=== PATIENT | male | born 1990 | race Two or more races ===

== ENCOUNTER 2020-05-27 07:52 | Outpatient (REF) | payer MEDICAID, SELFPAY ==
--- NOTE | ~2020-05-27 | XR_ITS ---
EXAMINATION: CR CHEST CLINICAL INFORMATION: Congenital malformation of heart. COMPARISON: None TECHNIQUE: 2 views of the chest were obtained. FINDINGS: The cardiomediastinal silhouette is within normal limits in size. [place] are seen along the posterior heart border. Lungs bilaterally are symmetrically expanded and clear. No focal consolidation, effusion or pneumothorax is seen. Bony structures are unremarkable. XR/XR chest 2V IMPRESSION: No acute cardiopulmonary process.
[2020-05-27 08:47] LABS: Hematocrit 48.6 % (42-52); Hemoglobin 16.8 g/dl (14.0-18.0); Mean Corpuscular HGB Conc 34.6 g/dl (31.0-36.0); Mean Corpuscular Hemoglobin 30.7 pg (27.0-33.0); Mean Corpuscular Volume 88.8 fL (80-98); Mean Platelet Volume 9.2 fL (9.4-12.4); Platelet Count 346 X10*3/uL (160-400); Red Blood Count 5.47 X10*6/uL (4.60-5.80); Red Cell Distribution Width 11.8 % (11.0-16.0); White Blood Count 5.9 X10*3/uL (4.8-10.8)
[2020-05-27 09:09] LABS: Glucose Urine UA NEG (NEG); Leukocyte Esterase Urine NEG (NEG); Nitrite Urine NEG (NEG); PH 5.5 (5.0-8.0); Specific Gravity - Urine >= 1.030 (1.005-1.025); Urine Blood 1+ (NEG); Urine Ketones NEG (NEG); Urine Protein NEG (NEG-TRACE)
[2020-05-27 09:11] LABS: Appearance Urine CLEAR; Color Urine YELLOW
[2020-05-27 09:13] LABS: Estimated Average Glucose 105 mg/dL; Hemoglobin A1c % 5.3 %
[2020-05-27 09:20] LABS: Cholesterol 232 mg/dL; HDL Cholesterol 48 mg/dL; LDL Cholesterol Calculated 131 mg/dl; Triglycerides 266 mg/dL
[2020-05-27 09:23] LABS: WBC Urine 0 /HPF (0-4)
[2020-05-27 09:41] LABS: TSH reflex Free T4 2.17 uIU/mL (0.32-4.0); Vitamin D 25-OH Total 19.8 ng/mL (>30)
[2020-05-29 03:50] LABS: ~Hepatitis C Antibody Nonreactive (Nonreactive)
[2020-05-29 03:51] LABS: HBS Num1 5.98 mIU/mL (0-7.99); HBc Num1 0.07 S/CO (0.00-0.79); Hepatitis B Core Antibody Nonreactive (Nonreactive); ~Hepatitis B Surface Antibody NONREACTIVE (Nonreactive)
[2020-05-29 05:00] LABS: Folate 15.8 ng/mL (> or = 4.0); Vitamin B12 381 pg/mL (200-900)
== END 2020-05-27 07:53 | disposition home or self-care (01) ==
LOC: HO.LAB 07:52
PROVIDERS: PCP Registered Nurse; Visit Provider Registered Nurse
DX: Z00.00 Encounter for general adult medical examination without abnormal findings (principal); Q24.9 Congenital malformation of heart, unspecified; H53.9 Unspecified visual disturbance; Z87.790 Personal history of (corrected) congenital malformations of face and neck
CPT/HCPCS: 36415; 71046; 80061; 81001; 81003; 82306; 82607; 82746; 83036; 84443; 85027; 86704; 86706; 86803

== ENCOUNTER 2020-12-11 14:10 | Emergency (ER) | payer MEDICAID, SELFPAY ==
--- NOTE | ~2020-12-11 | CT_ITS ---
EXAMINATION: CT ABDOMEN AND PELVIS WITH CONTRAST CLINICAL INFORMATION: Abdominal pain COMPARISON: None TECHNIQUE: Multidetector volumetric images were obtained from the superior aspect of the liver through the pubic symphysis following administration 85 mL of Omnipaque 350 intravenous contrast. Sagittal and coronal reformatted images were obtained on the technologist's workstation. Oral contrast: No This CT examination was performed using dose optimization techniques as appropriate, variously including the following: *Automated exposure control *Adjustment of mA and/or kV according to patient size (this includes techniques or standardized protocols for targeted exams where dose is matched to indication/reason for exam; i.e. extremities or head) *Use of iterative reconstruction technique DLP: 491 mGy-cm FINDINGS: LUNG BASES: There is some architectural distortion and curvilinear opacity at the right lung base. This could reflect sequelae of a prior pleural effusion. There is a 4 mm right middle lobe nodule in image 3/97 LIVER, GALLBLADDER, AND BILIARY TREE: The liver is normal in size, shape, and attenuation. No focal hepatic lesion or biliary ductal dilatation is present. The gallbladder is unremarkable with no evidence of radiopaque gallstones, gallbladder wall thickening, or obvious pericholecystic inflammatory changes. PANCREAS: Unremarkable. SPLEEN: Unremarkable. ADRENAL GLANDS: Unremarkable. KIDNEYS AND URETERS: The kidneys are normal in size, shape, and attenuation. No hydronephrosis, hydroureter, or calculi seen. No perinephric stranding. BLADDER: Unremarkable. GASTROINTESTINAL TRACT: The stomach and small bowel are nondilated. There is fat density wall thickening of the terminal ileum for example image 41/87. ABDOMINAL WALL: Small fat-containing umbilical hernia. LYMPH NODES: Normal. VASCULAR: Unremarkable. PELVIC VISCERA: The prostate and seminal vesicles are unremarkable. OSSEOUS STRUCTURES: Unremarkable. CT/CT abdomen pelvis w con IMPRESSION: No acute CT findings. There is fat density wall thickening of the terminal ileum which can be seen as a sequelae of prior chronic inflammation. 4 mm right middle lobe nodule. In the absence of a history of known malignancy, given the patient's age, this is exceedingly likely to be benign and no imaging follow-up is recommended.
[2020-12-11 14:20] VITALS: BP 119/72; PULSE 118; RESP 18; TEMP 36.8; O2SAT 98; BMI 28.5
--- NOTE | 2020-12-11 14:21 | ED_ITS ---
HPI - Nausea/Vomiting/Diarrhea General Chief complaint: Abdominal Pain Stated complaint: Abd Pain N/V/D Time Seen by Provider: 12/11/20 14:21 Related Data Previous Rx's Medication Instructions Recorded amoxicillin 875 mg-potassium 1 tab PO Q12H 10 Days #20 tab 12/12/20 clavulanate 125 mg tablet (Augmentin) ondansetron 4 mg disintegrating 4 mg PO Q8H PRN #20 tab 12/12/20 tablet oxycodone 5 mg tablet 5 mg PO Q8H PRN #10 tab 12/12/20 Allergies Allergy/AdvReac Type Severity Reaction Status Date / Time No Known Allergies Allergy Verified 12/11/20 14:22 [facility] Past Medical History Medical History No known health problems Social History Social History Alcohol intake: never Patient Tobacco Use Status: Never used Tobacco Use of substances other than those prescribed or required for medical reasons: No Advance Directives: No Advance Directives Information Provided: Yes Physical Exam Vital Signs: Vital Signs: Last Vital Signs Temp 98.5 F 12/11/20 22:00 Pulse 83 12/12/20 01:02 Resp 12 12/12/20 01:02 BP 115/67 12/12/20 01:02 Pulse Ox 96 12/12/20 01:02 Body Mass Index 28.5 Course Course Course Narrative: 1420-This is rapid medical exam. 30yo male here with nausea, vomiting, diarrhea, mid abdominal pain x 3 days with GARCIA. No fevers, chills. Diffuse tenderness of abdomen with no focal pain. Will check labs, UA, covid screen. Give SL zofran. Deferred additional HPI, ROS and PE to primary provider. MDM - Nausea/Vomiting/Diarrhea Lab Data Result diagrams: 12/11/20 15:09 12/11/20 15:09 Labs: Lab Results 12/11/20 12/11/20 12/11/20 Range/Units 15:09 15:09 15:09 WBC 14.7 H (4.8-10.8) X10*3/uL RBC 5.60 (4.60-5.80) X10*6/uL Hgb 16.9 (14.0-18.0) g/dl Hct 49.7 (42-52) % MCV 88.8 (80-98) fL MCH 30.2 (27.0-33.0) pg MCHC 34.0 (31.0-36.0) g/dl RDW 11.9 (11.0-16.0) % Plt Count 350 (160-400) X10*3/uL MPV 9.0 L (9.4-12.4) fL Immature Gran % (Auto) 0.4 (0.0-0.4) % Neut % (Auto) 93.7 H (45-73) % Lymph % (Auto) 2.2 L (20-40) % [place] % (Auto) 3.5 (2-11) % Eos % (Auto) 0.1 (0-4) % Baso % (Auto) 0.1 (0-2) % Lymph # (Auto) 0.3 L (1.2-4.9) X10*3/uL [place] # (Auto) 0.5 (0.1-1.2) X10*3/uL Eos # (Auto) 0.0 (0.0-0.4) X10*3/uL Baso # (Auto) 0.0 (0.0-0.2) X10*3/uL Abs Immat Gran (auto) 0.06 H (0.00-0.03) X10*3/uL Absolute Neuts (auto) 13.8 H (2.0-8.3) X10*3/uL Absolute Nucleated RBC 0.000 (0.0-0.012) X10*3/uL Nucleated RBC % (auto) 0.0 (0.0-0.2) /100WBC Smear Tech's Comments VERIFIED Sodium 140 (135-145) mmol/L Potassium 5.1 (3.3-5.1) mmol/L Chloride 105 (96-108) mmol/L Carbon Dioxide 26 (22-29) mmol/L Anion Gap 14 (12-20) BUN 22 H (9-16) mg/dL Creatinine 1.16 (0.5-1.4) mg/dL Estim Creat Clear Calc 108.4 Estimated GFR > 60 Random Glucose 113 (60-115) mg/dL Lactic Acid (0.5-2.0) mmol/L Calcium 10.0 (8.4-10.2) mg/dL Total Bilirubin 0.7 (0.0-1.0) mg/dL Direct Bilirubin 0.3 (0.0-0.5) mg/dL AST 21 (5-37) U/L ALT 32 (0-40) U/L Alkaline Phosphatase 103 (39-117) U/L C-Reactive Protein 1.88 H (< or = 0.50) mg/dL Total Protein 8.2 H (6.5-8.0) g/dL Albumin 4.8 (3.5-5.0) g/dL Lipase 11 (8-78) U/L COVID-19 (HAVEN) Negative (Negative) COVID-19 Clin Com See Note 12/11/20 Range/Units 22:07 WBC (4.8-10.8) X10*3/uL RBC (4.60-5.80) X10*6/uL Hgb (14.0-18.0) g/dl Hct (42-52) % MCV (80-98) fL MCH (27.0-33.0) pg MCHC (31.0-36.0) g/dl RDW (11.0-16.0) % Plt Count (160-400) X10*3/uL MPV (9.4-12.4) fL Immature Gran % (Auto) (0.0-0.4) % Neut % (Auto) (45-73) % Lymph % (Auto) (20-40) % [place] % (Auto) (2-11) % Eos % (Auto) (0-4) % Baso % (Auto) (0-2) % Lymph # (Auto) (1.2-4.9) X10*3/uL [place] # (Auto) (0.1-1.2) X10*3/uL Eos # (Auto) (0.0-0.4) X10*3/uL Baso # (Auto) (0.0-0.2) X10*3/uL Abs Immat Gran (auto) (0.00-0.03) X10*3/uL Absolute Neuts (auto) (2.0-8.3) X10*3/uL Absolute Nucleated RBC (0.0-0.012) X10*3/uL Nucleated RBC % (auto) (0.0-0.2) /100WBC Smear Tech's Comments Sodium (135-145) mmol/L Potassium (3.3-5.1) mmol/L Chloride (96-108) mmol/L Carbon Dioxide (22-29) mmol/L Anion Gap (12-20) BUN (9-16) mg/dL Creatinine (0.5-1.4) mg/dL Estim Creat Clear Calc Estimated GFR Random Glucose (60-115) mg/dL Lactic Acid 1.8 (0.5-2.0) mmol/L Calcium (8.4-10.2) mg/dL Total Bilirubin (0.0-1.0) mg/dL Direct Bilirubin (0.0-0.5) mg/dL AST (5-37) U/L ALT (0-40) U/L Alkaline Phosphatase (39-117) U/L C-Reactive Protein (< or = 0.50) mg/dL Total Protein (6.5-8.0) g/dL Albumin (3.5-5.0) g/dL Lipase (8-78) U/L COVID-19 (HAVEN) (Negative) COVID-19 Clin Com Discharge Plan Discharge Clinical Impression: Colitis Patient Disposition: Home, Self-Care Instructions: Colitis (ED), Enteritis (ED) Additional Instructions: Se le evalu? por dolor abdominal, n?useas y v?mitos. La tomograf?a computarizada muestra inflamaci?n al final del intestino muñiz. Matti un seguimiento con Gastroenterolog?a. Le remito a la Dra. Iqbal y habl? de garcia marlen con phyllis. Por favor, tome Augmentin. [place] hao medicamento dos veces al d?a nico los pr?ximos 10 d?as. Utilice Zofran seg?n sea necesario para las n?useas. Le recet? oxicodona para controlar el dolor. Hao medicamento es un narc?bayron y tiene un alto riesgo de adicci?n y abuso. No conduzca ni maneje maquinaria mientras est? tomando hao medicamento. Si los s?ntomas empeoran, regrese al departamento de emergencias de inmediato. Ginger por elegir hao departamento de emergencias para garcia evaluaci?n. Matti un seguimiento con garcia m?dico de atenci?n primaria seg?n sea necesario. Regrese al departamento de emergencias por cualquier s?ntoma nuevo, preocupante o que empeore. You were evaluated for abdominal pain, nausea and vomiting. CT scan shows inflammation at the end of the small bowel. Please follow-up with Gastroenterology. I refer you to Dr. Iqbal, and I did discuss her case with her. Please take Augmentin. Please take this medication twice a day for the next 10 days. Please use Zofran as needed for nausea. I prescribed oxycodone for pain management. This medication is a narcotic and has high risk for addiction and abuse. Do not drive or operate machinery while taking this medication. If symptoms get worse please return to the emergency department immediately. Thank you for choosing this emergency department for evaluation. Please follow-up with primary care physician as needed. Return to the emergency department for any new, concerning, or worsening symptoms. Prescriptions: New amoxicillin-pot clavulanate [Augmentin] 875-125 mg tablet 1 tab PO Q12H 10 Days Qty: 20 RF: 0 ondansetron 4 mg tablet,disintegrating 4 mg PO Q8H PRN (Reason: nausea and vomiting) Qty: 20 RF: 0 oxycodone 5 mg tablet 5 mg PO Q8H PRN (Reason: pain) Qty: 10 RF: 0 Referrals: Alfredo Iqbal MD [Physician] - 2 days (Terminal ileum inflammation) Stand Alone Forms: Work/School Release Interventions: ED Discharge Assessment Last Done: 12/12/20 01:19 Discharge Date/Time: 12/12/20 01:27
[2020-12-11] MEDS: Ondansetron ODT 4 MG TAB.RAPDIS TRANSLINGU (14:24)
[2020-12-11 15:25] LABS: Basophils Percent Auto 0.1 % (0-2); Eosinophils Percent Auto 0.1 % (0-4); Hematocrit 49.7 % (42-52); Hemoglobin 16.9 g/dl (14.0-18.0); Imm Gran Abs Auto 0.06 X10*3/uL (0.00-0.03); Imm Gran Pct Auto 0.4 % (0.0-0.4); Lymphocytes Absolute Auto 0.3 X10*3/uL (1.2-4.9); Lymphocytes Percent Auto 2.2 % (20-40); MANUAL DIFF FLAG SCAN; Mean Corpuscular Hemoglobin 30.2 pg (27.0-33.0); Mean Corpuscular Volume 88.8 fL (80-98); Monocytes Absolute Auto 0.5 X10*3/uL (0.1-1.2); Monocytes Percent Auto 3.5 % (2-11); Neutrophils Absolute Auto 13.8 X10*3/uL (2.0-8.3); Neutrophils Percent Auto 93.7 % (45-73); Platelet Count 350 X10*3/uL (160-400); Red Cell Distribution Width 11.9 % (11.0-16.0); SCAN SMEAR FLAG 1; White Blood Count 14.7 X10*3/uL (4.8-10.8)
[2020-12-11 15:38] LABS: Alanine Aminotransferase 32 U/L (0-40); Albumin Level 4.8 g/dL (3.5-5.0); Alkaline Phosphatase 103 U/L (39-117); Anion Gap 14 (12-20); Aspartate Amino Transferase 21 U/L (5-37); Bilirubin Direct 0.3 mg/dL (0.0-0.5); Bilirubin Total 0.7 mg/dL (0.0-1.0); Blood Urea Nitrogen 22 mg/dL (9-16); Carbon Dioxide 26 mmol/L (22-29); Chloride 105 mmol/L (96-108); Creatinine Clr Calc Pharmacy 108.4; Estimated Glomerular Filt Rate > 60; Glucose Random 113 mg/dL (60-115); Potassium 5.1 mmol/L (3.3-5.1); Sodium 140 mmol/L (135-145); Total Protein 8.2 g/dL (6.5-8.0)
[2020-12-11 15:44] LABS: COVID-19 Test Negative (Negative)
[2020-12-11 15:49] LABS: SLIDE REVIEW VERIFIED
--- NOTE | 2020-12-11 18:42 | ED.ABDPAIN ---
HPI - Abdominal Pain General Chief Complaint: Abdominal Pain Stated Complaint: Abd Pain N/V/D Time Seen by Provider: 12/11/20 14:21 Source: patient Mode of arrival: ambulatory Limitations: language barrier History of Present Illness HPI narrative: 30-year-old male presents with 2 days of abdominal pain, nausea, vomiting, diarrhea and headache. Unable to tolerate p.o. fluids. No prior history of pancreatitis, does not drink alcohol or participate in illicit drug use. MD elicited complaint: abdominal pain Onset (ago): day(s) (2) Pain Consistency: constant Location: epigastric and LLQ Severity: severe Pain scale (0-10): 9 Quality: cramping and aching Migration to: no migration Exacerbating factors: eating, vomiting and movement Relieving factors: nothing Associated symptoms: nausea, vomiting, diarrhea and chills Related Data Previous Rx's Medication Instructions Recorded amoxicillin 875 mg-potassium 1 tab PO Q12H 10 Days #20 tab 12/12/20 clavulanate 125 mg tablet (Augmentin) ondansetron 4 mg disintegrating 4 mg PO Q8H PRN #20 tab 12/12/20 tablet oxycodone 5 mg tablet 5 mg PO Q8H PRN #10 tab 12/12/20 Allergies Allergy/AdvReac Type Severity Reaction Status Date / Time No Known Allergies Allergy Verified 12/11/20 14:22 Review of Systems Review of Systems Constitutional: No Weight loss, No Fever, positive Chills, No Night Sweats, No Fatigue, No Malaise ENT/Mouth: No Hearing loss, No Ear Pain, No Nasal Congestion, No Sinus Pain, No Hoarseness, No sore throat, No Rhinorrhea, No Swallowing Difficulty Eyes: No Eye Pain, No Swelling, No Redness, No Foreign Body, No Discharge, No Vision Changes Cardiovascular: No Chest Pain, No SOB, No Dyspnea on Exertion, No Orthopnea, No Edema, No Palpitations Respiratory: No Cough, No Sputum, No Wheezing, No Smoke Exposure, No Dyspnea Gastrointestinal: Positive Nausea, Positive Vomiting, positive Diarrhea, positive abdominal Pain, No Hematochezia, No Melena Genitourinary: no irregular bleeding, No Dysuria, No Urinary Frequency, No Hematuria, No Urinary Incontinence, No Urgency, No Flank Pain, No Urinary Flow Changes, No Hesitancy Musculoskeletal: No joint pain, No Myalgias, No Joint Swelling Skin: No Skin Lesions, No rash Neuro: No Weakness, No Numbness, No Paresthesias, No Loss of Consciousness, No Dizziness, No Headache Psych: No Anxiety/Panic, No Depression, No SI/HI/AH/VH, No Social Issues Heme/Lymph: No Bruising, No Bleeding,No Lymphadenopathy Endocrine: No Polyuria, No Polydipsia, No Temperature Intolerance Yes all other systems are reviewed and are negative Physical Exam Vital Signs: Vital Signs: Last Vital Signs Temp 98.5 F 12/11/20 22:00 Pulse 98 12/11/20 22:00 Resp 18 12/11/20 22:00 BP 121/68 12/11/20 22:00 Pulse Ox 98 12/11/20 22:00 Body Mass Index 28.5 Appearance: Alert. Oriented X3. Moderate distress. Eyes: Pupils equal, round and reactive to light. Sclera nonicteric. ENT: Pharynx normal. Dry mucous membranes. Neck: Normal inspection. Neck supple. CVS: Normal heart rate and rhythm. Pulses normal. Respiratory: No respiratory distress. Breath sounds normal. Abdomen: Soft and tender to palpation to the epigastric, left upper, left lower quadrants of the abdomen. No rigidity, distention or rebound tenderness noted. Skin: Skin warm and dry. Normal skin color. Normal skin turgor. Extremities: No lower extremity edema. Moves all extremities against resistance. Gait well balanced well coordinated. Neuro: No motor deficit. No sensory deficit. Cranial nerves 2-12 intact. Course Course Course Narrative: 30-year-old male presents with 2 days of abdominal pain, nausea, vomiting, diarrhea. No prior history of abdominal surgeries. Physical exam is consistent with possible diverticulitis, colitis, peptic ulcer disease, gastritis. Less likely to be renal, no CVA tenderness. Labs ordered while patient was in the waiting room, does have an elevated white count of 14 with a shift, will order fluids, pain management and CT scan of abdomen pelvis with contrast Detailed discussion with patient and patient's family regarding plan, they do understand that patient should not have anything to eat or drink. translator and interpreter utilized for all correspondence. 9:30 p.m. discussion with Gastroenterology. If patient can tolerate p.o. we will discharge home, if not then we will admit to add medicine then have GI consult in the morning. 12:46 a.m.. patient is able to tolerate p.o. fluids. Plan of care is to discharge home with antibiotics, and Gastroenterology follow-up. Patient verbalized understanding of and agrees to plan of care. translator and interpreter utilized for all correspondence. Google translate utilized for discharge instructions. Consultations Consultation #1: Rasheed Time: 21:30 MDM - Abdominal Pain Differential Diagnosis Differential diagnosis: Likely abdominal pain, acute appendicitis, bowel perforation, calculus of kidney, constipation, diverticulitis, gastroenteritis, gastritis, mesenteric ischemia, pancreatitis and peptic ulcer disease Medical Records Attestation: I reviewed the patient's medical records. Lab Data Attestation: I reviewed the patient's lab results. Result diagrams: 12/11/20 15:09 12/11/20 15:09 Labs: Lab Results 12/11/20 12/11/20 12/11/20 Range/Units 15:09 15:09 15:09 WBC 14.7 H (4.8-10.8) X10*3/uL RBC 5.60 (4.60-5.80) X10*6/uL Hgb 16.9 (14.0-18.0) g/dl Hct 49.7 (42-52) % MCV 88.8 (80-98) fL MCH 30.2 (27.0-33.0) pg MCHC 34.0 (31.0-36.0) g/dl RDW 11.9 (11.0-16.0) % Plt Count 350 (160-400) X10*3/uL MPV 9.0 L (9.4-12.4) fL Immature Gran % (Auto) 0.4 (0.0-0.4) % Neut % (Auto) 93.7 H (45-73) % Lymph % (Auto) 2.2 L (20-40) % [place] % (Auto) 3.5 (2-11) % Eos % (Auto) 0.1 (0-4) % Baso % (Auto) 0.1 (0-2) % Lymph # (Auto) 0.3 L (1.2-4.9) X10*3/uL [place] # (Auto) 0.5 (0.1-1.2) X10*3/uL Eos # (Auto) 0.0 (0.0-0.4) X10*3/uL Baso # (Auto) 0.0 (0.0-0.2) X10*3/uL Abs Immat Gran (auto) 0.06 H (0.00-0.03) X10*3/uL Absolute Neuts (auto) 13.8 H (2.0-8.3) X10*3/uL Absolute Nucleated RBC 0.000 (0.0-0.012) X10*3/uL Nucleated RBC % (auto) 0.0 (0.0-0.2) /100WBC Smear Tech's Comments VERIFIED Sodium 140 (135-145) mmol/L Potassium 5.1 (3.3-5.1) mmol/L Chloride 105 (96-108) mmol/L Carbon Dioxide 26 (22-29) mmol/L Anion Gap 14 (12-20) BUN 22 H (9-16) mg/dL Creatinine 1.16 (0.5-1.4) mg/dL Estim Creat Clear Calc 108.4 Estimated GFR > 60 Random Glucose 113 (60-115) mg/dL Lactic Acid (0.5-2.0) mmol/L Calcium 10.0 (8.4-10.2) mg/dL Total Bilirubin 0.7 (0.0-1.0) mg/dL Direct Bilirubin 0.3 (0.0-0.5) mg/dL AST 21 (5-37) U/L ALT 32 (0-40) U/L Alkaline Phosphatase 103 (39-117) U/L C-Reactive Protein 1.88 H (< or = 0.50) mg/dL Total Protein 8.2 H (6.5-8.0) g/dL Albumin 4.8 (3.5-5.0) g/dL Lipase 11 (8-78) U/L COVID-19 (HAVEN) Negative (Negative) COVID-19 Clin Com See Note 12/11/20 Range/Units 22:07 WBC (4.8-10.8) X10*3/uL RBC (4.60-5.80) X10*6/uL Hgb (14.0-18.0) g/dl Hct (42-52) % MCV (80-98) fL MCH (27.0-33.0) pg MCHC (31.0-36.0) g/dl RDW (11.0-16.0) % Plt Count (160-400) X10*3/uL MPV (9.4-12.4) fL Immature Gran % (Auto) (0.0-0.4) % Neut % (Auto) (45-73) % Lymph % (Auto) (20-40) % [place] % (Auto) (2-11) % Eos % (Auto) (0-4) % Baso % (Auto) (0-2) % Lymph # (Auto) (1.2-4.9) X10*3/uL [place] # (Auto) (0.1-1.2) X10*3/uL Eos # (Auto) (0.0-0.4) X10*3/uL Baso # (Auto) (0.0-0.2) X10*3/uL Abs Immat Gran (auto) (0.00-0.03) X10*3/uL Absolute Neuts (auto) (2.0-8.3) X10*3/uL Absolute Nucleated RBC (0.0-0.012) X10*3/uL Nucleated RBC % (auto) (0.0-0.2) /100WBC Smear Tech's Comments Sodium (135-145) mmol/L Potassium (3.3-5.1) mmol/L Chloride (96-108) mmol/L Carbon Dioxide (22-29) mmol/L Anion Gap (12-20) BUN (9-16) mg/dL Creatinine (0.5-1.4) mg/dL Estim Creat Clear Calc Estimated GFR Random Glucose (60-115) mg/dL Lactic Acid 1.8 (0.5-2.0) mmol/L Calcium (8.4-10.2) mg/dL Total Bilirubin (0.0-1.0) mg/dL Direct Bilirubin (0.0-0.5) mg/dL AST (5-37) U/L ALT (0-40) U/L Alkaline Phosphatase (39-117) U/L C-Reactive Protein (< or = 0.50) mg/dL Total Protein (6.5-8.0) g/dL Albumin (3.5-5.0) g/dL Lipase (8-78) U/L COVID-19 (HAVEN) (Negative) COVID-19 Clin Com Imaging Data CT abdomen pelvis: Attestation: I personally reviewed and interpreted this imaging study as follows: Radiologist's impression: EXAMINATION: CT ABDOMEN AND PELVIS WITH CONTRAST? CLINICAL INFORMATION: Abdominal pain? COMPARISON: None? TECHNIQUE: Multidetector volumetric images were obtained from the superior aspect of the liver through the pubic symphysis following administration 85 mL of Omnipaque 350 intravenous contrast. Sagittal and coronal reformatted images were obtained on the technologist's workstation.? Oral contrast: No This CT examination was performed using dose optimization techniques as appropriate, variously including the following: *Automated exposure control *Adjustment of mA and/or kV according to patient size (this includes techniques or standardized protocols for targeted exams where dose is matched to indication/reason for exam; i.e. extremities or head) *Use of iterative reconstruction technique DLP: 491 mGy-cm FINDINGS: LUNG BASES: There is some architectural distortion and curvilinear opacity at the right lung base. This could reflect sequelae of a prior pleural effusion. There is a 4 mm right middle lobe nodule in image 3/97? LIVER, GALLBLADDER, AND BILIARY TREE: The liver is normal in size, shape, and attenuation. No focal hepatic lesion or biliary ductal dilatation is present. The gallbladder is unremarkable with no evidence of radiopaque gallstones, gallbladder wall thickening, or obvious pericholecystic inflammatory changes.? PANCREAS: Unremarkable.? SPLEEN: Unremarkable.? ADRENAL GLANDS: Unremarkable.? KIDNEYS AND URETERS: The kidneys are normal in size, shape, and attenuation. No hydronephrosis, hydroureter, or calculi seen. No perinephric stranding. ? BLADDER: Unremarkable.? GASTROINTESTINAL TRACT: The stomach and small bowel are nondilated. There is fat density wall thickening of the terminal ileum for example image 41/87.? ABDOMINAL WALL: Small fat-containing umbilical hernia.? LYMPH NODES: Normal. VASCULAR: Unremarkable. PELVIC VISCERA: The prostate and seminal vesicles are unremarkable.? OSSEOUS STRUCTURES: Unremarkable.? CT/CT abdomen pelvis w con IMPRESSION: No acute CT findings. ? There is fat density wall thickening of the terminal ileum which can be seen as a sequelae of prior chronic inflammation.? ? 4 mm right middle lobe nodule. In the absence of a history of known malignancy, given the patient's age, this is exceedingly likely to be benign and no imaging follow-up is recommended. Discharge Plan Discharge Clinical Impression: Colitis Patient Disposition: Home, Self-Care Instructions: Colitis (ED), Enteritis (ED) Additional Instructions: Se le evalu? por dolor abdominal, n?useas y v?mitos. La tomograf?a computarizada muestra inflamaci?n al final del intestino muñiz. Matti un seguimiento con Gastroenterolog?a. Le remito a la Dra. Iqbal y habl? de garcia marlen con phyllis. Por favor, tome Augmentin. [place] hao medicamento dos veces al d?a nico los pr?ximos 10 d?as. Utilice Zofran seg?n sea necesario para las n?useas. Le recet? oxicodona para controlar el dolor. Hao medicamento es un narc?bayron y tiene un alto riesgo de adicci?n y abuso. No conduzca ni maneje maquinaria mientras est? tomando hao medicamento. Si los s?ntomas empeoran, regrese al departamento de emergencias de inmediato. Ginger por elegir hao departamento de emergencias para garcia evaluaci?n. Matti un seguimiento con garcia m?dico de atenci?n primaria seg?n sea necesario. Regrese al departamento de emergencias por cualquier s?ntoma nuevo, preocupante o que empeore. You were evaluated for abdominal pain, nausea and vomiting. CT scan shows inflammation at the end of the small bowel. Please follow-up with Gastroenterology. I refer you to Dr. Iqbal, and I did discuss her case with her. Please take Augmentin. Please take this medication twice a day for the next 10 days. Please use Zofran as needed for nausea. I prescribed oxycodone for pain management. This medication is a narcotic and has high risk for addiction and abuse. Do not drive or operate machinery while taking this medication. If symptoms get worse please return to the emergency department immediately. Thank you for choosing this emergency department for evaluation. Please follow-up with primary care physician as needed. Return to the emergency department for any new, concerning, or worsening symptoms. Prescriptions: New amoxicillin-pot clavulanate [Augmentin] 875-125 mg tablet 1 tab PO Q12H 10 Days Qty: 20 RF: 0 ondansetron 4 mg tablet,disintegrating 4 mg PO Q8H PRN (Reason: nausea and vomiting) Qty: 20 RF: 0 oxycodone 5 mg tablet 5 mg PO Q8H PRN (Reason: pain) Qty: 10 RF: 0 Referrals: Alfredo Iqbal MD [Physician] - 2 days (Terminal ileum inflammation) Stand Alone Forms: Work/School Release [facility] Past Medical History Attestation statement: The following information was validated with the patient. Source: old records reviewed Medical History No known health problems Social History Social History Alcohol intake: never Patient Tobacco Use Status: Never used Tobacco Use of substances other than those prescribed or required for medical reasons: No Advance Directives: No Advance Directives Information Provided: Yes
[2020-12-11 19:06] LABS: Lipase 11 U/L (8-78)
[2020-12-11 19:12] VITALS: BP 129/75; PULSE 97; RESP 18; TEMP 36.9; O2SAT 97
[2020-12-11] MEDS: Morphine Sulfate 4 MG/ML CARTRIDGE IVPUSH (19:25)
[2020-12-11] MEDS: 0.9 % Sodium Chloride 1,000 ML 999 ML IVCONT (19:26)
--- NOTE | 2020-12-11 19:28 | PC.NURSE ---
patient a&ox3, vss, iv inserted, pt medicated per order, pt aware we need urine, will continue to monitor.
[2020-12-11] MEDS: iohexoL 350 MG/ML 100 ML INFUS..BTL IV (20:10)
[2020-12-11 20:14] VITALS: BP 122/73; PULSE 81; RESP 18; TEMP 36.7; O2SAT 97
--- NOTE | 2020-12-11 20:14 | PC.NURSE ---
patient awake-adrienne- helder who works with patient at the [facility] [employer] [facility] states this is his baseline, vss, potline monitor nsr, will continue to monitor.
[2020-12-11 22:00] VITALS: BP 121/68; PULSE 98; RESP 18; TEMP 36.9; O2SAT 98
[2020-12-11 22:21] LABS: Lactic Acid 1.8 mmol/L (0.5-2.0)
[2020-12-11] MEDS: cefTRIAXone sodium 1 GM in 0.9 % Sodium Chloride 50 ML IV (22:37)
[2020-12-11] MEDS: metroNIDAZOLE/NS 500 MG/100 ML PIGGYBACK 100 MG IV (23:17)
[2020-12-12 00:10] LABS: C Reactive Protein 1.88 mg/dL (< or = 0.50)
--- NOTE | 2020-12-12 00:35 | PC.NURSE ---
pt a&o, no sob or chest pain. pt is sleeping. no signs of distress at this time. Will continue to monitor.
[2020-12-12 01:02] VITALS: BP 115/67; PULSE 83; RESP 12; O2SAT 96
== END 2020-12-12 01:27 | disposition home or self-care (01) ==
PROVIDERS: Nurse Practitioner Family; Emergency Provider Internal Medicine
DX: K52.9 Noninfective gastroenteritis and colitis, unspecified (principal); R10.32 Left lower quadrant pain; R11.2 Nausea with vomiting, unspecified; Z79.899 Other long term (current) drug therapy; Z20.822 Contact with and (suspected) exposure to COVID-19
CPT/HCPCS: 36415; 74177; 80048; 80076; 83605; 83690; 85025; 86140; 87040; 87635; 96361; 96365; 96367; 96375; 99284; J0696; J2270; Q9967

== ENCOUNTER → 2021-05-07 13:02 | Outpatient (BNVA) | payer MEDICAID, SELFPAY | PROVIDERS: PCP Internal Medicine; Referring Provider Internal Medicine; Visit Provider Internal Medicine Gastroenterology | DX: K50.00 Crohn's disease of small intestine without complications (principal) | CPT/HCPCS: 99202 ==

== ENCOUNTER 2021-05-08 08:42 | Outpatient (REF) | payer MEDICAID, SELFPAY ==
[2021-05-08 09:05] LABS: MANUAL DIFF FLAG NO
[2021-05-08 09:55] LABS: Alanine Aminotransferase 48 U/L (0-40); Albumin Level 4.3 g/dL (3.5-5.0); Alkaline Phosphatase 97 U/L (39-117); Anion Gap 12 (12-20); Aspartate Amino Transferase 25 U/L (5-37); Bilirubin Total 0.5 mg/dL (0.0-1.0); Blood Urea Nitrogen 18 mg/dL (9-16); C Reactive Protein 0.23 mg/dL (< or = 0.50); Calcium 9.9 mg/dL (8.4-10.2); Carbon Dioxide 27 mmol/L (22-29); Chloride 104 mmol/L (96-108); Estimated Glomerular Filt Rate > 60; Glucose Random 89 mg/dL (60-115); Potassium 4.7 mmol/L (3.3-5.1); Sodium 138 mmol/L (135-145); Total Protein 7.5 g/dL (6.5-8.0)
[2021-05-08 10:08] LABS: Basophils Percent Auto 0.7 % (0-2); Eosinophils Absolute Auto 0.1 X10*3/uL (0.0-0.4); Eosinophils Percent Auto 1.7 % (0-4); Hematocrit 47.9 % (42.0-52.0); Imm Gran Abs Auto 0.02 X10*3/uL (0.00-0.03); Imm Gran Pct Auto 0.4 % (0.0-0.4); Lymphocytes Absolute Auto 1.5 X10*3/uL (1.2-4.9); Lymphocytes Percent Auto 27.4 % (20-40); Mean Corpuscular HGB Conc 33.4 g/dl (31.0-36.0); Mean Corpuscular Hemoglobin 30.1 pg (27.0-33.0); Mean Platelet Volume 9.2 fL (9.4-12.4); Monocytes Absolute Auto 0.4 X10*3/uL (0.1-1.2); Monocytes Percent Auto 7.4 % (2-11); Neutrophils Absolute Auto 3.4 x10*3/uL (2.0-8.3); Neutrophils Percent Auto 62.4 % (45-73); Platelet Count 349 X10*3/uL (160-400); Red Blood Count 5.32 X10*6/uL (4.60-5.80); Red Cell Distribution Width 12.2 % (11.0-16.0); White Blood Count 5.4 X10*3/uL (4.8-10.8)
[2021-05-08 10:23] LABS: Erythrocyte Sedimentation Rate 2 MM/HR (0-15)
[2021-05-08 10:38] LABS: Folate 7.7 ng/mL (> or = 4.0); Vitamin B12 410 pg/mL (200-900)
[2021-05-11 16:01] LABS: Vitamin C 0.8 mg/dL (0.2-2.1)
== END 2021-05-08 08:43 | disposition home or self-care (01) ==
LOC: HO.LAB 08:42
PROVIDERS: Visit Provider Internal Medicine Gastroenterology
DX: K50.00 Crohn's disease of small intestine without complications (principal); K75.81 Nonalcoholic steatohepatitis (NASH)
CPT/HCPCS: 36415; 80053; 82180; 82607; 82746; 85025; 85652; 86140

== ENCOUNTER 2021-05-09 14:30 | Outpatient (REF) | payer MEDICAID, SELFPAY ==
[2021-05-16 01:51] LABS: Lactoferrin, Fecal, Quant. <30.0 mcg/mL
[2021-05-16 14:51] LABS: Fecal Fat Qualitative ABNORMAL (NORMAL)
== END 2021-05-09 14:31 | disposition home or self-care (01) ==
LOC: HO.LNP 14:30
PROVIDERS: Visit Provider Internal Medicine Gastroenterology
DX: K50.00 Crohn's disease of small intestine without complications (principal); K74.60 Unspecified cirrhosis of liver
CPT/HCPCS: 82705; 83631

== ENCOUNTER 2021-06-25 13:16 | Outpatient (REF) | payer MEDICAID, SELFPAY ==
--- NOTE | ~2021-06-25 | CT_ITS ---
EXAMINATION: CT ENTEROGRAPHY ABDOMEN AND PELVIS WITH CONTRAST CLINICAL INFORMATION: Periumbilical pain COMPARISON: Previous CT of the abdomen and pelvis November 2020 TECHNIQUE: Study performed with oral VoLumen (1350 mL) and 480 mL of water to distend the abdomen. The patient was injected with 85 mL Omnipaque 350 intravenous contrast which was administered without adverse effect. Coronal and sagittal reformatted images were obtained at the technologist's workstation. This CT examination was performed using dose optimization techniques as appropriate, variously including the following: *Automated exposure control *Adjustment of mA and/or kV according to patient size (this includes techniques or standardized protocols for targeted exams where dose is matched to indication/reason for exam; i.e. extremities or head) *Use of iterative reconstruction technique DLP: 499 mGy-cm FINDINGS: GASTROINTESTINAL FINDINGS: Stomach: Well-distended and normal in appearance. Small intestine: Satisfactorily distended and normal in appearance. Large intestine: Stool throughout the colon questionable for constipation. Well-distended and otherwise normal in appearance. No perirectal changes demonstrated. The appendix is normal. Additional findings: No abnormal enhancement of the vasa recta or significant mesenteric or retroperitoneal lymphadenopathy is seen. No abdominal abscess or fistulous tract demonstrated. ABDOMINAL AND PELVIC CT FINDINGS: Liver, gallbladder, biliary tract: Normal Pancreas: Normal Spleen: Normal Adrenal glands and kidneys: Normal Ureters and bladder: Normal Lymphovascular structures: Normal. There are small, small bowel mesentery lymph nodes that appear similar to November 2020 exam. Bones: Normal Lung bases: There is a 4 mm nodule in the right middle lobe that is stable. There are postsurgical changes to the distal thoracic esophagus. There is a small umbilical hernia containing fat. CT/CT enterography IMPRESSION: Stool throughout the colon questionable for constipation otherwise normal CT enterography exam. 4 mm right middle lobe nodule stable from previous exam. Postsurgical changes to the distal thoracic esophagus. Small umbilical hernia.
[2021-06-25] MEDS: iohexoL 350 MG/ML 100 ML INFUS..BTL IV (16:09)
[2021-06-25] MEDS: Sorbitol/Mannit/Xanth Imaging 500 ML LIQUID 1500 ML PO (16:19)
== END 2021-06-25 13:17 | disposition home or self-care (01) ==
LOC: HO.US 13:16
PROVIDERS: Visit Provider Internal Medicine Gastroenterology
DX: R10.33 Periumbilical pain (principal); K50.00 Crohn's disease of small intestine without complications
CPT/HCPCS: 74177; Q9967

== ENCOUNTER → 2021-09-17 09:37 | Outpatient (BNVA) | payer MEDICAID, SELFPAY | PROVIDERS: PCP Internal Medicine; Visit Provider Internal Medicine Gastroenterology | DX: R10.9 Unspecified abdominal pain (principal); R19.7 Diarrhea, unspecified | CPT/HCPCS: 99212 ==

== ENCOUNTER → 2022-04-29 15:22 | Outpatient (BNVA) | payer MEDICAID, SELFPAY | PROVIDERS: Visit Provider Internal Medicine Gastroenterology | DX: K50.00 Crohn's disease of small intestine without complications (principal); K75.81 Nonalcoholic steatohepatitis (NASH) | CPT/HCPCS: 99212 ==

== ENCOUNTER 2022-06-14 11:51 | Outpatient (REF) | payer MEDICAID, SELFPAY ==
--- NOTE | ~2022-06-14 | XR_ITS ---
EXAMINATION: XR CHEST CLINICAL INFORMATION: Congenital heart disease. COMPARISON: Chest radiograph 05/27/2020, CT enterography 06/25/2021 CT abdomen 12/11/2020. TECHNIQUE: 2 views of the chest were obtained. FINDINGS: There is minor linear scarring periphery right hemithorax similar to prior studies. The lungs otherwise clear and the vascularity is normal. There is no airspace solid lesion, groundglass opacity, vascular congestion, or effusion. The costophrenic sulci are clear. The cardiac and hilar and mediastinal contours and visualized bony structures are unremarkable. XR/XR chest 2V IMPRESSION: - No acute intrathoracic disease. - Minor linear scarring periphery right hemithorax similar to prior studies.
== END 2022-06-14 11:52 | disposition home or self-care (01) ==
LOC: HO.XRAY 11:51
PROVIDERS: Visit Provider Registered Nurse
DX: Q24.9 Congenital malformation of heart, unspecified (principal)
CPT/HCPCS: 71046

== ENCOUNTER 2023-07-30 12:14 | Emergency (ER) | payer MEDICAID, SELFPAY ==
[2023-07-30 12:31] VITALS: BP 113/72; PULSE 70; RESP 16; TEMP 36.1; O2SAT 98; BMI 33.3
--- NOTE | 2023-07-30 12:36 | ED.GENADULT ---
HPI - General Adult General Chief complaint: Abdominal Pain Stated complaint: Abd pain Time Seen by Provider: 07/30/23 15:12 Source: patient Mode of arrival: ambulatory Limitations: no limitations History of Present Illness HPI narrative: 33-year-old male presents emergency department complaining of lower abdominal pain with some loose stools and then constipation. Patient states he has no nausea or vomiting. Patient states the pain comes and goes in his in his lower abdomen he currently does not have the pain he denies any fevers chills cough shortness of breath denies any urinary symptoms fevers or chills patient was seen and labs sent. Patient had similar story several years ago had a CT scan and was follow up with GI for short period of time. Was treated for constipation. Of note he stated that he had diarrhea to me as well as to the triage nurse but the patient states he does not go the bathroom every day and has some small loose stools when he goes to the bathroom. Related Data Previous Rx's ?Medication ?Instructions ?Recorded ondansetron 4 mg disintegrating 4 mg PO Q8H PRN nausea and 12/12/20 tablet vomiting #20 tabs dicyclomine 10 mg capsule 10 mg PO BID #20 caps 07/30/23 polyethylene glycol 3350 17 gram 17 g PO BID 2 weeks #100 ea 07/30/23 oral powder packet Allergies Allergy/AdvReac Type Severity Reaction Status Date / Time No Known Allergies Allergy Verified 07/30/23 12:37 Review of Systems Review of Systems: Review of systems: General: Patient denies any fever chills recent illness or falls Musculoskeletal: Denies back pain or body aches or other injuries HEENT: denies headache, runny nose, ear pain Respiratory: denies shortness of breath, cough Cardiovascular: no chest pain or palpitations : denies dysuria, frequency Abdomen: no nausea vomiting denies abdominal pain Extremities: no swelling, no pain Skin: no diaphoresis Yes all other systems are reviewed and are negative PMFSH Past Medical History Medical History No known health problems Surgical History History of esophagogastroduodenoscopy (EGD) Social History Social History (Reviewed 04/29/22 @ 15:28 by JODY Odonnell Alcohol intake: never Patient Tobacco Use Status: Never used Tobacco Physical Exam ED Vital Signs: Vital Signs - 24 hr 07/30/23 12:31 Temperature 97 F Pulse Rate 70 Respiratory Rate 16 Blood Pressure 113/72 Pulse Oximetry 98 Oxygen Delivery Method Room Air BMI result Body Mass Index 33.3 General: Well-appearing well-nourished in no signs of distress HEENT: Normocephalic atraumatic Neck: No signs of JVD, no masses no tenderness or lymphadenopathy Cardiovascular: Regular rate and rhythm Respiratory: Clear to auscultation bilaterally Abdomen: Soft nontender no masses Extremities: Normal pedal pulses no signs of edema Skin: Dry warm no rashes Back: No tenderness full ROM Course Course Course Narrative: This is a rapid medical exam performed by Smith Lock NP: Additional HPI, ROS, PE not included below will be deferred to primary provider. Patient is a 33-year-old male presenting to the ED with complaint of pain below umbilicus, diarrhea x 2 days. Denies urinary sxs. States pain is mild, 3-4/10. Denies fevers or N/V. Denies prior abdominal surgeries. Plan: UA, labs Medical Decision Making Medical Decision Making MDM Narrative: Patient is completely unremarkable I do think is likely constipation start the patient on MiraLax we will give the patient some Bentyl for crampy abdominal pain I think he is safe to go in follow-up Differential Diagnosis Differential Diagnoses: The differential diagnosis associated with the presentation includes Abdominal pain constipation less likely surgical abdomen Admission/Observation Consideration of admission/observation: Escalation of care including admission/observation considered Lab Data [facility] Lab Attestation statement: I reviewed the patient's lab results. 07/30/23 12:46 07/30/23 12:46 Labs: Lab Results 07/30/23 Range/Units 12:46 WBC 6.0 (4.8-10.8) X10*3/uL RBC 5.30 (4.60-5.80) X10*6/uL Hgb 16.3 (14.0-18.0) g/dl Hct 46.7 (42.0-52.0) % MCV 88.1 (80.0-98.0) fL MCH 30.8 (27.0-33.0) pg MCHC 34.9 (31.0-36.0) g/dl RDW 12.3 (11.0-16.0) % Plt Count 312 (160-400) X10*3/uL MPV 8.8 L (9.4-12.4) fL Immature Gran % (Auto) 0.5 H (0.0-0.4) % Neut % (Auto) 66.0 (45-73) % Lymph % (Auto) 20.6 (20-40) % Garvin % (Auto) 10.9 (2-11) % Eos % (Auto) 1.7 (0-4) % Baso % (Auto) 0.3 (0-2) % Lymph # (Auto) 1.2 (1.2-4.9) X10*3/uL Garvin # (Auto) 0.7 (0.1-1.2) X10*3/uL Eos # (Auto) 0.1 (0.0-0.4) X10*3/uL Baso # (Auto) 0.0 (0.0-0.2) X10*3/uL Abs Immat Gran (auto) 0.03 (0.00-0.03) X10*3/uL Absolute Neuts (auto) 4.0 (2.0-8.3) x10*3/uL Absolute Nucleated RBC 0.000 (0.0-0.012) X10*3/uL Nucleated RBC % (auto) 0.0 (0.0-0.2) /100WBC PT 12.3 (11.1-13.3) SEC INR 1.0 (0.9-1.1) Sodium 138 (135-145) mmol/L Potassium 3.7 (3.3-5.1) mmol/L Chloride 104 (96-108) mmol/L Carbon Dioxide 23 (22-29) mmol/L Anion Gap 15 (12-20) BUN 13 (9-16) mg/dL Creatinine 1.08 (0.5-1.4) mg/dL Estim Creat Clear Calc 100.7 Estimated GFR > 60 Random Glucose 97 (60-115) mg/dL Calcium 9.6 (8.4-10.2) mg/dL Total Bilirubin 0.4 (0.0-1.0) mg/dL AST 28 (5-37) U/L ALT 50 H (0-40) U/L Alkaline Phosphatase 103 (39-117) U/L Total Protein 7.9 (6.5-8.0) g/dL Albumin 4.4 (3.5-5.0) g/dL Amylase 73 (28-100) U/L Lipase 21 (8-78) U/L External Record Review External record reviewed: Inpatient record and Outpatient record Social Determinants Patient?s care significantly limited by Social Determinants of Health including: Inadequate housing Discharge Plan Discharge Clinical Impression: Constipation Patient Disposition: Home, Self-Care Instructions: Acute Abdominal Pain (ED), Constipation (DC) Additional Instructions: You were seen today for constipation. You had normal labs and exam. Please take miralax for constipation and you can use bentyl. If you have any other concerns please return to the ER. Prescriptions: New dicyclomine 10 mg capsule 10 mg PO BID Qty: 20 0RF polyethylene glycol 3350 17 gram powder in packet 17 g PO BID 14 Days Qty: 100 0RF No Action ondansetron 4 mg tablet,disintegrating 4 mg PO Q8H PRN (Reason: nausea and vomiting) Qty: 20 0RF Print Language: [place]
[2023-07-30 12:56] LABS: MANUAL DIFF FLAG NO
[2023-07-30 12:57] LABS: Basophils Percent Auto 0.3 % (0-2); Eosinophils Absolute Auto 0.1 X10*3/uL (0.0-0.4); Eosinophils Percent Auto 1.7 % (0-4); Hematocrit 46.7 % (42.0-52.0); Hemoglobin 16.3 g/dl (14.0-18.0); Imm Gran Abs Auto 0.03 X10*3/uL (0.00-0.03); Imm Gran Pct Auto 0.5 % (0.0-0.4); Lymphocytes Absolute Auto 1.2 X10*3/uL (1.2-4.9); Lymphocytes Percent Auto 20.6 % (20-40); Mean Corpuscular HGB Conc 34.9 g/dl (31.0-36.0); Mean Corpuscular Hemoglobin 30.8 pg (27.0-33.0); Mean Corpuscular Volume 88.1 fL (80.0-98.0); Mean Platelet Volume 8.8 fL (9.4-12.4); Monocytes Absolute Auto 0.7 X10*3/uL (0.1-1.2); Monocytes Percent Auto 10.9 % (2-11); Platelet Count 312 X10*3/uL (160-400); Red Cell Distribution Width 12.3 % (11.0-16.0)
[2023-07-30 13:06] LABS: Prothrombin Time 12.3 SEC (11.1-13.3)
[2023-07-30 13:13] LABS: Alanine Aminotransferase 50 U/L (0-40); Albumin Level 4.4 g/dL (3.5-5.0); Alkaline Phosphatase 103 U/L (39-117); Amylase 73 U/L (28-100); Anion Gap 15 (12-20); Aspartate Amino Transferase 28 U/L (5-37); Bilirubin Total 0.4 mg/dL (0.0-1.0); Blood Urea Nitrogen 13 mg/dL (9-16); Calcium 9.6 mg/dL (8.4-10.2); Carbon Dioxide 23 mmol/L (22-29); Chloride 104 mmol/L (96-108); Creatinine Clr Calc Pharmacy 100.7; Estimated Glomerular Filt Rate > 60; Glucose Random 97 mg/dL (60-115); Lipase 21 U/L (8-78); Potassium 3.7 mmol/L (3.3-5.1); Sodium 138 mmol/L (135-145); Total Protein 7.9 g/dL (6.5-8.0)
[2023-07-30] MEDS: Dicyclomine HCl 10 MG CAPSULE PO (15:41)
[2023-07-30 15:44] VITALS: BP 121/74; PULSE 68; RESP 18; TEMP 36.6; O2SAT 97
== END 2023-07-30 15:45 | disposition home or self-care (01) ==
LOC: HO.ED 15:43
PROVIDERS: Registered Nurse Emergency; Emergency Provider Student in an Organized Health Care Education/Training Program; PCP Nurse Practitioner Family
DX: K59.00 Constipation, unspecified (principal); R10.30 Lower abdominal pain, unspecified
CPT/HCPCS: 36415; 80053; 82150; 83690; 85025; 85610; 99282; 99283

== ENCOUNTER 2023-09-29 14:43 | Outpatient (REF) | payer MEDICAID, SELFPAY ==
--- NOTE | ~2023-09-29 | XR_ITS ---
EXAMINATION: XR CHEST CLINICAL INFORMATION: Congenital heart disease COMPARISON: Radiographs 06/14/2022 TECHNIQUE: 2 views of the chest were obtained. FINDINGS: No focal consolidation, pulmonary edema, or pleural effusion. Stable cardiomediastinal silhouette. XR/XR chest 2V IMPRESSION: No acute cardiopulmonary findings.
== END 2023-09-29 14:44 | disposition home or self-care (01) ==
LOC: HO.HHCX 14:43
PROVIDERS: Visit Provider Nurse Practitioner Family
DX: Z87.74 Personal history of (corrected) congenital malformations of heart and circulatory system (principal)
CPT/HCPCS: 71046

== ENCOUNTER 2023-09-30 08:33 | Outpatient (REF) | payer MEDICAID, SELFPAY ==
[2023-09-30 11:11] LABS: HIV AB/AG Nonreactive (Nonreactive); HIV Num 1 0.05 S/CO (0.00-0.99); ~HepC Num1 0.18 S/CO (0.00-0.79); ~Hepatitis C Antibody Nonreactive (Nonreactive)
[2023-09-30 11:13] LABS: Alanine Aminotransferase 40 U/L (0-40); Albumin Level 4.3 g/dL (3.5-5.0); Alkaline Phosphatase 94 U/L (39-117); Anion Gap 13 (12-20); Aspartate Amino Transferase 25 U/L (5-37); Bilirubin Total 0.6 mg/dL (0.0-1.0); Blood Urea Nitrogen 17 mg/dL (9-16); Calcium 9.7 mg/dL (8.4-10.2); Carbon Dioxide 27 mmol/L (22-29); Chloride 103 mmol/L (96-108); Cholesterol 212 mg/dL (<200); Estimated Glomerular Filt Rate > 60; Glucose Random 88 mg/dL (60-115); HDL Cholesterol 46 mg/dL (>40); LDL Cholesterol Calculated 138 mg/dL (<100); Sodium 139 mmol/L (135-145); Total Protein 7.7 g/dL (6.5-8.0); Triglycerides 141 mg/dL (<150)
[2023-09-30 11:16] LABS: Estimated Average Glucose 103 mg/dL; Hemoglobin A1c % 5.2 % (<6.0)
[2023-09-30 12:34] LABS: CT PCR NOT DETECTED (Not Detect.); NG PCR NOT DETECTED (Not Detect.)
[2023-10-01 14:23] LABS: RPR Rapid Plasma Reagin NON-REACTIVE (NON-REACTIVE)
== END 2023-09-30 08:34 | disposition home or self-care (01) ==
LOC: HO.LAB 08:33
PROVIDERS: PCP Nurse Practitioner Family; Visit Provider Nurse Practitioner Family
DX: Z00.00 Encounter for general adult medical examination without abnormal findings (principal); Z70.8 Other sex counseling; E78.2 Mixed hyperlipidemia
CPT/HCPCS: 80053; 80061; 83036; 86592; 86803; 87389; 87491; 87591